=== PATIENT | female | born 1960 | race Asian ===

== ENCOUNTER → 2016-10-05 | Outpatient (CLI) | payer BC ==
--- NOTE | 2016-10-05 16:01 | MAMMOGRAPHY REPORT ---
BILATERAL DIGITAL SCREENING MAMMOGRAM TOMOSYNTHESIS WITH CAD: 10/05/2016 TECHNIQUE: Breast tomosynthesis in addition to standard 2D mammography was performed. Current study was also evaluated with a Computer Aided Detection (CAD) system. COMPARISON: Comparison is made to exams dated: 09/23/2015 mammogram, 09/17/2014 mammogram, 07/24/2013 m ammogram, 07/15/2012 mammogram, 06/22/2011 mammogram, and 05/26/2010 mammogram - [facility] enter. BREAST COMPOSITION: There are scattered areas of fibroglandular density in both breasts. FINDINGS: No suspicious masses, calcifications, or areas of architectural distortion are noted in ei ther breast. There has been no significant interval change compared to prior exams. Bilateral benign -appearing calcifications are not significantly changed. IMPRESSION: ACR BI-RADS CATEGORY 2: BENIGN There is no mammographic evidence of malignancy. A 1 year screening mammogram is recommended. The pa tient will receive written notification of the results. Approximately 10% of breast cancers are not detected with mammography. A negative mammographic report should not delay biopsy if a clinically suggestive mass is present. Marietta Woodward M.D. ah/:10/05/2016 15:43:26 Paradi Operator: Sandy CHAVARRIA(Efrain)(), [facility] letter sent: Normal 1/2 BI-RADS Code: ACR BI-RADS Category 2: Benign
== END | disposition home or self-care (01) ==
LOC: C.MAMM 15:07
PROVIDERS: ATTEND Obstetrics & Gynecology
DX: Z12.31 Encounter for screening mammogram for malignant neoplasm of breast (principal)

== ENCOUNTER → 2016-10-12 | Outpatient (CLI) | payer OTHER, BC ==
--- NOTE | 2016-10-12 15:17 | DIAGNOSTIC IMAGING REPORT ---
LUMBAR SPINE 5 VIEWS HISTORY: Trauma. Pain. LOW BACK PAIN, FALL COMPARISON: None. FINDINGS: There is no fracture. No subluxation. Moderate degenerative disc changes throughout. Mild scoliosis. IMPRESSION: Degenerative change. Mild scoliosis. No acute process. Electronically signed by: Pilo Dinh M.D. 10/12/2016 3:16 PM Dictated Date/Time: 10/12/2016 3:14 PM
--- NOTE | 2016-10-12 15:17 | DIAGNOSTIC IMAGING REPORT ---
LEFT WRIST MIN 3 VIEWS ROUTINE CLINICAL HISTORY: Bilateral wrist pain following fall. COMPARISON: None FINDINGS: Alignment of the left wrist is anatomic. There is no acute fracture. There is mild joint space narrowing of the radiocarpal articulation. IMPRESSION: No acute fracture or dislocation of the left wrist. Electronically signed by: Mario Baumann M.D. 10/12/2016 3:16 PM Dictated Date/Time: 10/12/2016 3:15 PM
--- NOTE | 2016-10-12 15:18 | DIAGNOSTIC IMAGING REPORT ---
RIGHT WRIST MIN 3 VIEWS ROUTINE CLINICAL HISTORY: Bilateral wrist pain following fall. COMPARISON: None FINDINGS: Alignment of the right wrist is anatomic. No acute fracture is identified. There is mild radiocarpal joint space narrowing. IMPRESSION: No acute fracture or dislocation of the right wrist. Electronically signed by: Mario Baumann M.D. 10/12/2016 3:17 PM Dictated Date/Time: 10/12/2016 3:16 PM
== END | disposition home or self-care (01) ==
LOC: C.RAD1850 14:49
PROVIDERS: ATTEND Family Medicine
DX: M54.5 Low back pain (principal); M25.531 Pain in right wrist; M25.532 Pain in left wrist; W19.XXXA Unspecified fall, initial encounter

== ENCOUNTER → 2017-11-29 | Outpatient (CLI) | payer OTHER ==
--- NOTE | 2017-12-02 15:11 | MAMMOGRAPHY REPORT ---
BILATERAL DIGITAL SCREENING MAMMOGRAM TOMOSYNTHESIS WITH CAD: 11/29/2017 CLINICAL HISTORY: Routine screening. Patient has no complaints. TECHNIQUE: The study was acquired using full field digital technology and interpreted from soft copy. Breast tomosynthesis in addition to standard 2D mammography was performed. Current study was also ev aluated with a Computer Aided Detection (CAD) system. COMPARISON: Comparison is made to exams dated: 10/05/2016 mammogram, 09/23/2015 mammogram, 09/17/2014 ma mmogram, 06/22/2011 mammogram, 04/07/2009 mammogram - [facility], and 12/11/2007. BREAST COMPOSITION: There are scattered areas of fibroglandular density in both breasts. FINDINGS: No suspicious masses, calcifications, or areas of architectural distortion are noted in either breast . There has been no significant interval change compared to prior exams. Faint calcifications within the right medial breast are stable compared to multiple prior exams including the 2008 exam and are considered benign given long-term stability. Bilateral subareolar asymmetries are stable. IMPRESSION: ACR BI-RADS CATEGORY 2: BENIGN There is no mammographic evidence of malignancy. A 1 year screening mammogram is recommended.( [id number]) The patient will receive written notification of the results. Some breast cancers are not detected with mammography. A negative mammographic report should not celestine y biopsy if a clinically suggestive mass is present. Marietta Woodward M.D. /:11/29/2017 15:16:39 Preventive Medicine Physician: Judy Chacko, [facility] letter sent: Normal 1/2 BI-RADS Code: ACR BI-RADS Category 2: Benign
== END | disposition home or self-care (01) ==
LOC: C.MAMM 14:59
PROVIDERS: ATTEND Obstetrics & Gynecology
DX: Z12.31 Encounter for screening mammogram for malignant neoplasm of breast (principal)